=== PATIENT | male | born 1960 ===

== ENCOUNTER 2017-04-04 08:45 | Inpatient (IN) | payer BC ==
[2017-04-04] MEDS ORDERED: TEMAZEPAM 15 MG CAP PO PRN (09:53)
[2017-04-04] MEDS ORDERED: ALPRAZolam 0.25 MG TAB PO PRN (09:53)
[2017-04-04] MEDS ORDERED: NALOXONE 0.4 MG/ML 1 ML VIAL IV PRN (09:53)
[2017-04-04 11:39] LABS: Glucose,Whole Blood 129 mg/dL (75-99)
--- NOTE | 2017-04-04 11:46 | XR ---
EXAMINATION TYPE: XR chest 2V DATE OF EXAM: 04/04/2017 COMPARISON: None HISTORY: 57 year-old male shortness of breath, evaluate for CHF TECHNIQUE: Frontal and lateral views FINDINGS: The heart is borderline enlarged. The vasculature does not appear cephalized. Some strandy atelectasi s in the lower lungs. The right main pulmonary artery appears prominent on the lateral view. No conso lidation or pleural effusion. IMPRESSION: 1. Borderline cardiomegaly without hamida CHF. 2. The right main pulmonary artery appears large on the lateral view. Correlate for the possibility o f underlying pulmonary arterial hypertension.
[2017-04-04 12:03] LABS: Basophils % (A) 1 %; CH 31.4; CHCM 31.3; Eosinophils # (A) 0.1 k/uL (0-0.7); Eosinophils % (A) 3 %; HCT 37.3 % (39.0-53.0); HDW 2.53; HGB 12.2 gm/dL (13.0-17.5); Hypochromasia Slight; Luc # (Auto) 0.13; Luc % (Auto) 3; Lymphocytes % (A) 20 %; MCH 32.8 pg (25.0-35.0); MCHC 32.6 g/dL (31.0-37.0); MCV 100.7 fL (80.0-100.0); Macrocytosis Slight; Mean Platelet Volume 8.4; Monocytes # (A) 0.4 k/uL (0-1.0); Monocytes % (A) 8 %; Neutrophils # (A) 3.4 k/uL (1.3-7.7); Neutrophils % (A) 66 %; RBC 3.71 m/uL (4.30-5.90); RDW 14.5 % (11.5-15.5); WBC 5.1 k/uL (3.8-10.6); WBC (Perox) 5.73
[2017-04-04 12:18] LABS: ALT 45 U/L (21-72); AST 57 U/L (17-59); Alkaline Phosphatase 148 U/L (38-126); Anion Gap 10 mmol/L; Blood Urea Nitrogen 7 mg/dL (9-20); Calcium 9.1 mg/dL (8.4-10.2); Carbon Dioxide 26 mmol/L (22-30); Chloride 106 mmol/L (98-107); Glucose 130 mg/dL (74-99); Magnesium 1.6 mg/dL (1.6-2.3); Non-African American GFR(MDRD) >60 (>60 ml/min/1.73 sqM); Phosphorous 3.1 mg/dL (2.5-4.5); Potassium 4.1 mmol/L (3.5-5.1); Sodium 142 mmol/L (137-145); Total Bilirubin 1.9 mg/dL (0.2-1.3); Total Protein 7.7 g/dL (6.3-8.2)
[2017-04-04] MEDS: SODIUM CHLORIDE 0.9% 1,000 ML IV SCH (13:13)
[2017-04-04 15:15] LABS: INR 1.2 (<1.1); Prothrombin Time 11.7 sec (9.0-12.0)
[2017-04-04] MEDS: IOHEXOL 350 MG/ML 25 ML BOTTLE (ORAL USE) PO PRN ×2 (15:35→16:33)
[2017-04-04] MEDS: SPIRONOLACTONE 25 MG TAB PO SCH ×2 (15:37→20:59)
[2017-04-04 15:45] LABS: Hepatitis B Surface Ag Index 0.06
[2017-04-04 15:51] LABS: Hepatitis B Core IgM Index 0.03
[2017-04-04 15:56] LABS: Hemoglobin A1C 5.9 % (4.2-6.1)
[2017-04-04 16:02] LABS: Hepatitis C Virus IgG Ab Negative (Negative)
[2017-04-04 16:12] LABS: Amylase <30 U/L (30-110)
--- NOTE | 2017-04-04 16:54 | HP ---
DATE OF ADMISSION: CHIEF COMPLAINT: Abdominal distention as well as shortness of breath. HISTORY OF PRESENT ILLNESS: This 57-year-old gentleman with a past medical history of diabetes mellitus, history of deep venous thrombosis, history of right surgery being followed by Dr. Lainez in the outpatient setting complaining of increasing shortness of breath as well as abdominal distention for the last several weeks. The patient had multiple outpatient evaluations and the patient became persistently symptomatic with increase abdominal girth and as well as shortness of breath and exertion. Patient also complains of minimal leg edema. Dr. Lainez directly admitted the patient to hospital for further evaluation and treatment. There is no history of fever, rigors or chills. No history of headache, loss of consciousness or seizures at this time. No history of chest pain, palpitation either. The patient also had weight gain about 40 to 50 pounds in the past recent few weeks also. The patient also was noted to have generalized anasarca. PAST MEDICAL HISTORY: Diabetes mellitus type 2, history of DVT, history of surgery for club foot surgery. Medications prior to admission include: 1. Glucophage 500 mg p.o. b.i.d. 2. Aldactone 50 mg. ALLERGIES: SULFA. FAMILY HISTORY: No history of heart disease or strokes in the family. SOCIAL HISTORY: The patient works as [employer]. Otherwise occasional alcohol intake. No history of smoking. REVIEW OF SYSTEMS: ENT: No diminished hearing. No diminished vision. CARDIOVASCULAR: No angina, palpitations. RESPIRATORY: No cough, hemoptysis. GI: As mentioned earlier. : No dysuria. NERVOUS SYSTEM: No numbness or weakness. ALLERGY/IMMUNOLOGY: No asthma. MUSCULOSKELETAL: As mentioned earlier. HEMATOLOGY: No history of anemia. ENDOCRINE: As mentioned earlier. CONSTITUTIONAL: As mentioned earlier. DERMATOLOGY: Negative. RHEUMATOLOGY: Negative. PSYCHIATRY: Negative. PHYSICAL EXAMINATION: Alert and oriented x3. Pulse is 80, blood pressure 130/69, respirations 16, temperature 97.2, pulse ox is 90% on room air. HEENT: Conjunctivae normal. Oral mucosa moist. NECK: No jugular venous distention. No carotid bruit. No lymph node enlargement. CARDIOVASCULAR: S1 and S2. No S3, no S4. RESPIRATORY: Breath sounds diminished at the bases. A few scattered rhonchi and crackles. ABDOMEN: Soft, obese, abdominal wall striae present. Otherwise, diffuse dullness also present. No guarding. No rigidity. No mass palpable. LEGS: Minimal edema bilaterally. NERVOUS SYSTEM: Higher function as mentioned. Moves all four limbs. No focal motor deficits. LYMPHATIC: No lymphadenopathy in the neck, axillae or groin. SKIN: Multiple telangiectasia present on the face and upper chest. JOINTS: No active deforming arthropathy. LABS: At this time shows, WBC 5, hemoglobin 12, MCV 100.7, platelets 136, glucose 130, total bilirubin is 1.9, alkaline phosphatase 148. ASSESSMENT: 1. Abdominal distention and anasarca for evaluation, rule out chronic liver disease. 2. Rule out cirrhosis of the liver. 3. Rule out ascites. 4. Anemia. 5. Macrocytosis. 6. Increased random blood sugar and diabetes mellitus type 2. 7. Increased be bilirubin. 8. Increased alkaline phosphatase. 9. Super morbid obesity with BMI of 56.7. 10. Mild thrombocytopenia. 11. History of degenerative joint disease. 12. History of deep venous thrombosis. 13. History of prediabetes. 14. FULL CODE. RECOMMENDATIONS AND DISCUSSION: In this 57-year-old gentleman who presented with multiple complex medical issues, we will monitor the patient closely. Continue the current medications, continue the symptomatic treatment. I recommend re-evaluate the previous testing. Recommend acute hepatitis panel and as well as abdominal ultrasound and possibly ascitic tap if there is any fluid in the abdomen for diagnostic and therapeutic purposes. Otherwise, continue to monitor and guarded prognosis because of multiple complex medical issues. Further recommendations to follow. Will also check UA with micro. Other than that, prognosis guarded. Home medications to be continued. Discussed with the patient who understands and agrees. Copy of dictation forwarded to Dr. Lainez who is the primary physician. DUSTY
[2017-04-04 17:32] LABS: Glucose,Whole Blood 152 mg/dL (75-99)
[2017-04-04] MEDS: INSULIN LISPRO (humaLOG) 300 UNIT/3 ML VIAL SQ SCH ×2 (17:43→20:56)
--- NOTE | 2017-04-04 19:20 | CT ---
EXAMINATION TYPE: CT abdomen pelvis wo con DATE OF EXAM: 04/04/2017 COMPARISON: NONE HISTORY: Ascites. CT DLP: 3360.40 mGycm Automated exposure control for dose reduction was used. TECHNIQUE: Helical acquisition of images was performed from the lung bases through the pelvis. FINDINGS: Lung bases are clear of consolidation. There is no pleural effusion. There is a large amount of ascit es fluid throughout the abdomen. Exam is limited by the patient size. The anterior abdomen is not ent irely included as a result. Liver is relatively small and consistent with cirrhosis. Spleen is enlarg ed and measures 17 cm.: There is a loop at the gastroesophageal junction consistent with bariatric petty rgery. There is no sign of a pancreatic mass. Bile ducts are not dilated. There is no evidence of a b owel obstruction. There is no adrenal mass. Kidneys have normal size and contour. There is no hydronephrosis. There is an inferior vena cava filter noted. There is a 2 mm calcification in the lower pole left kidney. I se e no bony destructive process. There are spondylotic changes in the lumbar spine. Bladder distends sm oothly. There is no sign of a pelvic mass. IMPRESSION: CHANGES OF HEPATIC CIRRHOSIS. SPLENOMEGALY. BARIATRIC SURGERY NOTED. MASSIVE ASCITES. SUBCUTANEOUS EDEMA OVER THE ANTERIOR LOWER ABDOMINAL WALL. NONOBSTRUCTING TINY LEFT RENAL CALCULUS.
[2017-04-04 20:41] LABS: Glucose,Whole Blood 149 mg/dL (75-99)
[2017-04-04] MEDS: metFORMIN 500 MG TAB PO SCH (20:56)
[2017-04-04] MEDS: FUROSEMIDE 10 MG/ML 4 ML VIAL IV SCH (20:59)
[2017-04-04 22:17] LABS: Appearance,Urine Cloudy (Clear); Bacteria,Urine Many /hpf; Bilirubin,Urine Negative (Negative); Glucose,Urine (UA) Negative (Negative); Ketones,Urine Negative (Negative); Leukocyte Esterase,Urine Large (Negative); Mucus,Urine Rare /hpf; Nitrite,Urine Positive (Negative); PH, Urine 5.5 (5.0-8.0); Particle Count 4189; Protein,Urine Negative (Negative); RBC,Urine 5 /hpf (0-5); Specific Gravity,Urine 1.008 (1.001-1.035); Squamous Epithelial Cell,Urine <1 /hpf (0-4); UA Billing (MACRO vs. MICRO) MICRO; Urobilinogen,Urine <2.0 mg/dL (<2.0); WBC,Urine 134 /hpf (0-5)
[2017-04-05 07:20] LABS: Glucose,Whole Blood 115 mg/dL (75-99)
[2017-04-05] MEDS: INSULIN LISPRO (humaLOG) 300 UNIT/3 ML VIAL SQ SCH ×4 (07:24→22:50)
[2017-04-05] MEDS: PANTOPRAZOLE 40 MG TABLET PO SCH (08:10)
[2017-04-05] MEDS: SPIRONOLACTONE 25 MG TAB PO SCH ×2 (08:11→22:46)
[2017-04-05] MEDS: SODIUM CHLORIDE 0.9% 1,000 ML IV SCH (08:11)
[2017-04-05] MEDS: metFORMIN 500 MG TAB PO SCH ×2 (08:11→22:46)
[2017-04-05] MEDS: FUROSEMIDE 10 MG/ML 4 ML VIAL IV SCH ×2 (08:11→22:50)
[2017-04-05 08:12] LABS: Basophils % (A) 1 %; CH 31.2; CHCM 31.8; Eosinophils # (A) 0.1 k/uL (0-0.7); Eosinophils % (A) 3 %; HCT 35.9 % (39.0-53.0); HDW 2.54; HGB 11.9 gm/dL (13.0-17.5); Luc # (Auto) 0.11; Luc % (Auto) 2; Lymphocytes % (A) 22 %; MCH 32.8 pg (25.0-35.0); MCHC 33.2 g/dL (31.0-37.0); MCV 98.8 fL (80.0-100.0); Mean Platelet Volume 8.5; Monocytes # (A) 0.4 k/uL (0-1.0); Monocytes % (A) 9 %; Neutrophils # (A) 2.9 k/uL (1.3-7.7); Neutrophils % (A) 63 %; RBC 3.63 m/uL (4.30-5.90); RDW 14.4 % (11.5-15.5); WBC 4.6 k/uL (3.8-10.6); WBC (Perox) 5.23
[2017-04-05 08:32] LABS: ALT 38 U/L (21-72); AST 50 U/L (17-59); Alkaline Phosphatase 135 U/L (38-126); Anion Gap 9 mmol/L; Blood Urea Nitrogen 9 mg/dL (9-20); Calcium 8.9 mg/dL (8.4-10.2); Carbon Dioxide 30 mmol/L (22-30); Chloride 102 mmol/L (98-107); Glucose 127 mg/dL (74-99); Non-African American GFR(MDRD) >60 (>60 ml/min/1.73 sqM); Potassium 4.2 mmol/L (3.5-5.1); Sodium 141 mmol/L (137-145); Total Bilirubin 1.9 mg/dL (0.2-1.3); Total Protein 7.6 g/dL (6.3-8.2)
--- NOTE | 2017-04-05 10:20 | P.CONS ---
History of Present Illness - Reason for Consult Consult date: 04/05/17 ascites Requesting physician: Julius Tinsley - History of Present Illness 57-year-old gentleman patient of Dr. Lainez with a past medical history of morbid obesity BMI 61, LAP-BAND about 5 years ago, recent diagnosis of diabetes , DVT, and frequent alcohol consumption 3-4 times weekly for more than 20 years. Consultation requested for ascites. Patient has noticed increased abdominal girth lower extremity edema shortness of breath over the last few months but exacerbated over the last week. CT scan abdomen and pelvis reported a small cirrhotic-appearing liver with moderate ascites. IV diuretics started with good response patient's reports voiding large amounts of urine and feels better today. Denies hematemesis hematochezia melena. No fever or chills. No changes in the color of his urine or bowel movements. No history of hepatitis. Hepatitis panel negative. Denies alcohol abuse. No history of IVDA abuse. White count 5.1. Hemoglobin 12.2. MCV 100.7. Platelet 132. INR 1.2. Total bilirubin 1.9. AST 57. ALT 45. Alkaline phosphates 148. Lipase 46. BUN 7. Creatinine 0.8. No history of known liver disorders or autoimmune diseases. Review of Systems Constitutional: Denies fever, chills, sweats, weight gain, or loss. HEENT: Negative for migraines, blurred vision or loss, earaches, drainage, tinnitus, oral mucosal lesions, dysphagia, or odynophagia. Cardiac: Negative for chest pain, arrhythmias, or palpitation. Respiratory: Negative for shortness of breath, hemoptysis, cough, or sputum production. Gastrointestinal: See HPI for pertinent findings. Genitourinary: Negative for hematuria, urgency, frequency, polyuria, dysuria, or penile discharge. Musculoskeletal: Negative for muscle aches, swelling, arthritis, and arthralgias. Neurologic: Negative for stroke or TIA. Endocrine: Diabetes. Negative for thyroid problems. Hematologic: DVT. Skin: Negative for rash or itching. Psychiatric: Negative history for depression and anxietyle All systems: negative (See HPI) Past Medical History Past Medical History: Diabetes Mellitus, Deep Vein Thrombosis (DVT) Additional Past Medical History / Comment(s): Pt states he has had increased abdominal size for 1 week and is SOB with exertion, "pre-diabetic", DVT L leg History of Any Multi-Drug Resistant Organisms: None Reported Past Surgical History: Orthopedic Surgery Additional Past Surgical History / Comment(s): R club foot surgery as child, colonoscopy-normal. Past Anesthesia/Blood Transfusion Reactions: No Reported Reaction Smoking Status: Never smoker - Past Family History Mother Family Medical History: No Reported History Additional Family Medical History / Comment(s): Mother is 82yrs old. Father History Unknown: Yes Additional Family Medical History / Comment(s): Pt does not know father's medical history. Father in his 60's. Medications and Allergies Home Medications Medication Instructions Recorded Confirmed Type Spironolactone [Aldactone] 50 mg PO BID 04/04/17 04/04/17 History metFORMIN HCL [Glucophage] 500 mg PO BID 04/04/17 04/04/17 History Allergies Allergy/AdvReac Type Severity Reaction Status Date / Time Sulfa (Sulfonamide Allergy Unknown Verified 04/04/17 11:18 Antibiotics) Physical Exam Vitals: Vital Signs Temp Pulse Resp BP Pulse Ox 04/05/17 07:00 97.4 F L 81 20 148/99 92 L 04/04/17 22:59 98.3 F 83 18 128/57 94 L 04/04/17 21:03 135/87 04/04/17 16:00 18 04/04/17 15:00 97.1 F L 77 18 157/90 97 04/04/17 10:56 97.2 F L 80 18 135/74 96 Intake and Output 04/04/17 04/05/17 04/05/17 22:59 06:59 14:59 Output Total 1450 600 Balance -1450 -600 Output: Urine 1450 600 Other: Weight 184.5 kg 197.5 kg General appearance: The patient is alert, oriented, in no acute distress. Diffuse mild anasarca tube upper and lower extremities. HET: Head is normocephalic and atraumatic. Pupils are equal and reactive. Oropharynx is clear without lesions. Neck: Supple without lymphadenopathy. Trachea midline. Heart: S1 S2. Regular rate and rhythm. Lungs: No crackles or wheezes are heard. Abdomen: Soft, distended difficult to assess ascites secondary to large abdominal girth with bowel sounds. No peritoneal signs. No palpable organomegaly or masses. Extremities: +3 bilateral lower extremity edema. Neurological: No focal deficits. Strength and sensation are grossly intact. Results CBC & Chem 7: 04/05/17 07:31 04/05/17 07:31 Labs: Abnormal Lab Results - Last 24 Hours (Table) 04/04/17 04/04/17 04/04/17 Range/Units 11:30 11:36 11:38 RBC 3.71 L (4.30-5.90) m/uL Hgb 12.2 L (13.0-17.5) gm/dL Hct 37.3 L (39.0-53.0) % MCV 100.7 H (80.0-100.0) fL Plt Count 136 L (150-450) k/uL BUN 7 L (9-20) mg/dL Glucose 130 H (74-99) mg/dL POC Glucose (mg/dL) 129 H (75-99) mg/dL Total Bilirubin 1.9 H (0.2-1.3) mg/dL Alkaline Phosphatase 148 H (38-126) U/L Albumin (3.5-5.0) g/dL Amylase (30-110) U/L Ur Leukocyte Esterase (Negative) Urine WBC (0-5) /hpf Urine Bacteria (None) /hpf Hyaline Casts (0-2) /lpf Urine Mucus (None) /hpf 04/04/17 04/04/17 04/04/17 Range/Units 11:38 17:30 20:40 RBC (4.30-5.90) m/uL Hgb (13.0-17.5) gm/dL Hct (39.0-53.0) % MCV (80.0-100.0) fL Plt Count (150-450) k/uL BUN (9-20) mg/dL Glucose (74-99) mg/dL POC Glucose (mg/dL) 152 H 149 H (75-99) mg/dL Total Bilirubin (0.2-1.3) mg/dL Alkaline Phosphatase (38-126) U/L Albumin (3.5-5.0) g/dL Amylase <30 L (30-110) U/L Ur Leukocyte Esterase (Negative) Urine WBC (0-5) /hpf Urine Bacteria (None) /hpf Hyaline Casts (0-2) /lpf Urine Mucus (None) /hpf 04/04/17 04/05/17 04/05/17 Range/Units 22:00 07:14 07:31 RBC 3.63 L (4.30-5.90) m/uL Hgb 11.9 L (13.0-17.5) gm/dL Hct 35.9 L (39.0-53.0) % MCV (80.0-100.0) fL Plt Count 132 L (150-450) k/uL BUN (9-20) mg/dL Glucose (74-99) mg/dL POC Glucose (mg/dL) 115 H (75-99) mg/dL Total Bilirubin (0.2-1.3) mg/dL Alkaline Phosphatase (38-126) U/L Albumin (3.5-5.0) g/dL Amylase (30-110) U/L Ur Leukocyte Esterase Large H (Negative) Urine WBC 134 H (0-5) /hpf Urine Bacteria Many H (None) /hpf Hyaline Casts 6 H (0-2) /lpf Urine Mucus Rare H (None) /hpf 04/05/17 Range/Units 07:31 RBC (4.30-5.90) m/uL Hgb (13.0-17.5) gm/dL Hct (39.0-53.0) % MCV (80.0-100.0) fL Plt Count (150-450) k/uL BUN (9-20) mg/dL Glucose 127 H (74-99) mg/dL POC Glucose (mg/dL) (75-99) mg/dL Total Bilirubin 1.9 H (0.2-1.3) mg/dL Alkaline Phosphatase 135 H (38-126) U/L Albumin 3.4 L (3.5-5.0) g/dL Amylase (30-110) U/L Ur Leukocyte Esterase (Negative) Urine WBC (0-5) /hpf Urine Bacteria (None) /hpf Hyaline Casts (0-2) /lpf Urine Mucus (None) /hpf CT scan - abdomen: report reviewed (Dr. Hernandez) Assessment and Plan (1) Cirrhosis Narrative/Plan: 57-year-old gentleman with a history of lifelong morbid obesity and frequent consumption of alcohol for more than 20 years presents with increased abdominal girth generalized edema shortness of breath with CT imaging reporting cirrhotic- appearing liver and moderate amount of ascites suspected portal hypertension. Etiology of suspected cirrhosis new onset of ascites possibly alcohol-related combined with morbid obesity however nonalcoholic chronic liver disease etiology needs to be excluded. Status: Acute (2) Morbid obesity with BMI of 60.0-69.9, adult Status: Acute (3) Ascites Status: Acute Plan: 1. Therapeutic diagnostic paracentesis with interventional radiology. Will send ascitic fluid for culture, cytology, and analysis for portal hypertension. 2. Hepatitis panel reviewed and negative. AFP. 3. Full serologic workup for chronic liver disease will be requested. Discharge per medicine after paracentesis. Follow up in GI office after discharge for reevaluation. Thank you for this kind referral and the opportunity to participate in the care of your patient. This consultation was discussed with Dr. Hernandez. The impression and plan of care have been directed as dictated.
[2017-04-05 12:03] LABS: Glucose,Whole Blood 145 mg/dL (75-99)
--- NOTE | 2017-04-05 14:51 | P.PN ---
Subjective Date of service 04/05/2017. Progress note being dictated for Dr. Tinsley. Interval history: This a 57-year-old gentleman admitted with anasarca, abdominal distention, ascites and multiple other medical issues. Maintained on empiric Rocephin, Lasix, Aldactone. Feels better today. Abdominal /pelvis CT reporting changes of hepatic cirrhosis, relatively small liver consistent with cirrhosis, splenomegaly, massive ascites, subcutaneous edema over her anterior lower abdominal wall. Hepatitis panel negative. T bili 1.9, alk phos improving at 135. Evaluated by GI and scheduled for paracentesis. Review of systems: HEENT: Denies fevers,chills.Denies headache or focal deficits. Denies any dizziness or lightheadedness. Respiratory: Denies any increased shortness of breath or cough. Denies hemoptysis. Cardiac: Denies any chest pain, palpitations. GI: Denies any nausea, vomiting, or diarrhea. Increasing abdominal girth worsened over the last week, Denies any abdominal tenderness. : Denies any dysuria, urgency, frequency. Psychiatry: Denies any anxiety or depression. Active Medications Alprazolam (Xanax) 0.25 mg PO Q6HR PRN PRN Reason: Anxiety Furosemide (Lasix) 40 mg IV Q12HR [facility] Last Admin: 04/05/17 08:11 Dose: 40 mg Sodium Chloride (Saline 0.9%) 1,000 mls @ 20 mls/hr IV .Q24H [facility] Last Admin: 04/05/17 08:11 Dose: Not Given Ceftriaxone Sodium 1,000 mg/ (Sodium Chloride) 50 mls @ 100 mls/hr IVPB Q24HR [facility] Last Admin: 04/05/17 13:39 Dose: 100 mls/hr Insulin Human Lispro (Humalog) 0 unit SQ ACHS DERICK PRN Reason: Protocol Last Admin: 04/05/17 13:39 Dose: Not Given Iohexol (Omnipaque 350 Mg/Ml (For Oral Use)) 25 ml PO Q60M PRN PRN Reason: CT Scan Stop: 04/05/17 15:16 Last Admin: 04/04/17 16:33 Dose: 25 ml Metformin HCl (Glucophage) 500 mg PO BID [facility] Last Admin: 04/05/17 08:11 Dose: 500 mg Naloxone HCl (Narcan) 0.2 mg IV Q2M PRN PRN Reason: Opioid Reversal Pantoprazole Sodium (Protonix) 40 mg PO AC-BRKFST [facility] Last Admin: 04/05/17 08:10 Dose: Not Given Spironolactone (Aldactone) 50 mg PO BID [facility] Last Admin: 04/05/17 08:11 Dose: 50 mg Temazepam (Restoril) 15 mg PO HS PRN PRN Reason: Insomnia Objective - Vital Signs Vital signs: Vital Signs Temp 97.4 F L 04/05/17 07:00 Pulse 81 04/05/17 08:00 Resp 20 04/05/17 08:00 BP 148/99 04/05/17 07:00 Pulse Ox 92 L 04/05/17 07:00 Intake & Output 04/04/17 04/05/17 04/05/17 18:59 06:59 18:59 Intake Total 75 Output Total 1450 600 Balance -1450 -525 Weight 184.5 kg 197.5 kg Intake: Oral 75 Output: Urine 1450 600 Other: # Voids 2 - Exam PHYSICAL EXAM: VITAL SIGNS: As above GENERAL: [Sitting up in bed, no acute distress] HEENT: [Pupils equal conjunctiva normal. Oral mucosa moist] NECK: [Supple, no JVD] RESPIRATORY EFFORT:[ Normal] LUNGS: [Diminished, Scattered rhonchi, no wheezes or crackles CARDIOVASCULAR[ regular S1 and S2, positive edema] GI: [Abdomen obese, soft, distended, nontender, abdominal wall striae present, positive ascites, diffuse dullness ,positive bowel sounds. No guarding, no rigidity] PSYCH: [Alert and oriented -3, mood and affect normal.] SKIN: [Multiple telangiectasia of upper chest and face] NEURO: No focal deficits, moves all 4 extremities, strength and sensation grossly intact - Labs CBC & Chem 7: 04/05/17 07:31 04/05/17 07:31 Labs: Abnormal Lab Results - Last 24 Hours (Table) 04/04/17 04/04/17 04/04/17 Range/Units 11:38 17:30 20:40 RBC (4.30-5.90) m/uL Hgb (13.0-17.5) gm/dL Hct (39.0-53.0) % Plt Count (150-450) k/uL Glucose (74-99) mg/dL POC Glucose (mg/dL) 152 H 149 H (75-99) mg/dL Total Bilirubin (0.2-1.3) mg/dL Alkaline Phosphatase (38-126) U/L Albumin (3.5-5.0) g/dL Amylase <30 L (30-110) U/L Ur Leukocyte Esterase (Negative) Urine WBC (0-5) /hpf Urine Bacteria (None) /hpf Hyaline Casts (0-2) /lpf Urine Mucus (None) /hpf 04/04/17 04/05/17 04/05/17 Range/Units 22:00 07:14 07:31 RBC 3.63 L (4.30-5.90) m/uL Hgb 11.9 L (13.0-17.5) gm/dL Hct 35.9 L (39.0-53.0) % Plt Count 132 L (150-450) k/uL Glucose (74-99) mg/dL POC Glucose (mg/dL) 115 H (75-99) mg/dL Total Bilirubin (0.2-1.3) mg/dL Alkaline Phosphatase (38-126) U/L Albumin (3.5-5.0) g/dL Amylase (30-110) U/L Ur Leukocyte Esterase Large H (Negative) Urine WBC 134 H (0-5) /hpf Urine Bacteria Many H (None) /hpf Hyaline Casts 6 H (0-2) /lpf Urine Mucus Rare H (None) /hpf 04/05/17 04/05/17 Range/Units 07:31 11:58 RBC (4.30-5.90) m/uL Hgb (13.0-17.5) gm/dL Hct (39.0-53.0) % Plt Count (150-450) k/uL Glucose 127 H (74-99) mg/dL POC Glucose (mg/dL) 145 H (75-99) mg/dL Total Bilirubin 1.9 H (0.2-1.3) mg/dL Alkaline Phosphatase 135 H (38-126) U/L Albumin 3.4 L (3.5-5.0) g/dL Amylase (30-110) U/L Ur Leukocyte Esterase (Negative) Urine WBC (0-5) /hpf Urine Bacteria (None) /hpf Hyaline Casts (0-2) /lpf Urine Mucus (None) /hpf Assessment and Plan Plan: 1. Abdominal distention, anasarca for evaluation rule out chronic liver disease. 2. Hepatic cirrhosis as per CT, 3. Acute ascites, massive per CT, rule out portal hypertension, paracentesis pending 4. [ Anemia]. 5. [ Macrocytosis]. 6. [ Diabetes mellitus type 2, hemoglobin A1c 5.9]. 7. [ Increased bilirubin, increased alk phos]. 8. Morbid obesity, BMI 56.7 9. Mild thrombocytopenia 10. Degenerative joint disease 11. History of DVT Plan: Continue on current medication regime ,monitoring and symptomatic treatment. Diagnostic and therapeutic paracentesis scheduled for today. Follow closely with GI. Close monitoring of Accu-Cheks in a patient recently diagnosed with diabetes. clinical informatics educator consult initiated. Further recommendations to follow. The impression and plan of care has been dictated as directed. : I performed a H&P examination of this patient and discussed the same with the dictator. I agree with the dictator's note. Any additional findings/opinions/ etc. will be noted.
[2017-04-05 15:09] LABS: % Iron Saturation 30.4 % (20-50)
[2017-04-05 17:12] LABS: Glucose,Whole Blood 140 mg/dL (75-99)
[2017-04-05 20:43] LABS: Glucose,Whole Blood 166 mg/dL (75-99)
[2017-04-06 07:12] LABS: ANA w/Reflex to Titer POSITIVE (NEGATIVE)
[2017-04-06] MEDS: INSULIN LISPRO (humaLOG) 300 UNIT/3 ML VIAL SQ SCH ×2 (07:14→12:14)
[2017-04-06 07:42] LABS: Glucose,Whole Blood 129 mg/dL (75-99)
[2017-04-06 08:03] LABS: ALT 38 U/L (21-72); AST 46 U/L (17-59); Alkaline Phosphatase 114 U/L (38-126); Anion Gap 9 mmol/L; Basophils # (A) 0.1 k/uL (0-0.2); Basophils % (A) 1 %; Blood Urea Nitrogen 11 mg/dL (9-20); CH 31.4; CHCM 32.2; Calcium 8.8 mg/dL (8.4-10.2); Carbon Dioxide 30 mmol/L (22-30); Chloride 102 mmol/L (98-107); Eosinophils # (A) 0.1 k/uL (0-0.7); Eosinophils % (A) 3 %; Glucose 128 mg/dL (74-99); HDW 2.46; HGB 11.4 gm/dL (13.0-17.5); Luc # (Auto) 0.08; Luc % (Auto) 2; Lymphocytes # (A) 1.1 k/uL (1.0-4.8); Lymphocytes % (A) 26 %; MCH 32.2 pg (25.0-35.0); MCHC 32.7 g/dL (31.0-37.0); MCV 98.3 fL (80.0-100.0); Mean Platelet Volume 8.7; Monocytes # (A) 0.3 k/uL (0-1.0); Monocytes % (A) 7 %; Neutrophils # (A) 2.6 k/uL (1.3-7.7); Neutrophils % (A) 61 %; Non-African American GFR(MDRD) >60 (>60 ml/min/1.73 sqM); RBC 3.56 m/uL (4.30-5.90); RDW 14.5 % (11.5-15.5); Sodium 141 mmol/L (137-145); Total Bilirubin 1.5 mg/dL (0.2-1.3); Total Protein 7.2 g/dL (6.3-8.2); WBC 4.3 k/uL (3.8-10.6); WBC (Perox) 4.29
[2017-04-06] MEDS: PANTOPRAZOLE 40 MG TABLET PO SCH (08:29)
[2017-04-06] MEDS: FUROSEMIDE 10 MG/ML 4 ML VIAL IV SCH (08:29)
[2017-04-06] MEDS: SODIUM CHLORIDE 0.9% 1,000 ML IV SCH (08:29)
--- NOTE | 2017-04-06 08:30 | P.PN ---
Subjective Principal diagnosis: Cirrhosis new-onset ascites 57-year-old gentleman with a history of morbid obesity and long-standing alcohol consumption presents with new onset of ascites shortness of breath. Scheduled for therapeutic diagnostic paracentesis today. SHAMEKA screen positive. Hepatitis panel negative. AFP 3.6. LFTs; total bilirubin 1.5. AST 46. ALT 38. Alkaline phosphatase 114. Iron indices within normal limits. Feels better. Objective - Vital Signs Vital signs: Vital Signs Temp 97.6 F 04/06/17 07:36 Pulse 91 04/06/17 07:36 Resp 18 04/06/17 07:36 BP 130/72 04/06/17 07:36 Pulse Ox 91 L 04/06/17 07:36 Intake & Output 04/05/17 04/06/17 04/06/17 18:59 06:59 18:59 Intake Total 565 Output Total 1250 1650 Balance -685 -1650 Weight 197.5 kg 195 kg Intake: Intake, IV Titration 60 Amount Sodium Chloride 0.9% 1, 10 000 ml @ 20 mls/hr IV . Q24H DERICK Rx#:[id number] cefTRIAXone 1,000 mg In 50 Sodium Chloride 0.9% 50 ml @ 100 mls/hr IVPB Q24HR DERICK Rx#:[id number] Oral 505 Output: Urine 1250 1650 Other: # Voids 2 2 # Bowel Movements 0 - Exam General appearance: The patient is alert, oriented, in no acute distress. Diffuse mild anasarca tube upper and lower extremities. HET: Head is normocephalic and atraumatic. Pupils are equal and reactive. Oropharynx is clear without lesions. Neck: Supple without lymphadenopathy. Trachea midline. Heart: S1 S2. Regular rate and rhythm. Lungs: No crackles or wheezes are heard. Abdomen: Soft, distended difficult to assess ascites secondary to large abdominal girth with bowel sounds. No peritoneal signs. No palpable organomegaly or masses. Extremities: +3 bilateral lower extremity edema. Neurological: No focal deficits. Strength and sensation are grossly intact. - Labs CBC & Chem 7: 04/06/17 07:09 04/06/17 07:09 Labs: Abnormal Lab Results - Last 24 Hours (Table) 04/05/17 04/05/17 04/05/17 Range/Units 07:31 07:31 10:20 RBC 3.63 L (4.30-5.90) m/uL Hgb 11.9 L (13.0-17.5) gm/dL Hct 35.9 L (39.0-53.0) % Plt Count 132 L (150-450) k/uL Glucose 127 H (74-99) mg/dL POC Glucose (mg/dL) (75-99) mg/dL TIBC 237 L (261-462) ug/dL Total Bilirubin 1.9 H (0.2-1.3) mg/dL Alkaline Phosphatase 135 H (38-126) U/L Albumin 3.4 L (3.5-5.0) g/dL SHAMEKA Screen (NEGATIVE) 04/05/17 04/05/17 04/05/17 Range/Units 10:20 11:58 17:08 RBC (4.30-5.90) m/uL Hgb (13.0-17.5) gm/dL Hct (39.0-53.0) % Plt Count (150-450) k/uL Glucose (74-99) mg/dL POC Glucose (mg/dL) 145 H 140 H (75-99) mg/dL TIBC (261-462) ug/dL Total Bilirubin (0.2-1.3) mg/dL Alkaline Phosphatase (38-126) U/L Albumin (3.5-5.0) g/dL SHAMEKA Screen POSITIVE H (NEGATIVE) 04/05/17 04/06/17 04/06/17 Range/Units 20:42 07:09 07:09 RBC 3.56 L (4.30-5.90) m/uL Hgb 11.4 L (13.0-17.5) gm/dL Hct 35.0 L (39.0-53.0) % Plt Count 125 L (150-450) k/uL Glucose 128 H (74-99) mg/dL POC Glucose (mg/dL) 166 H (75-99) mg/dL TIBC (261-462) ug/dL Total Bilirubin 1.5 H (0.2-1.3) mg/dL Alkaline Phosphatase (38-126) U/L Albumin 3.2 L (3.5-5.0) g/dL SHAMEKA Screen (NEGATIVE) 04/06/17 Range/Units 07:40 RBC (4.30-5.90) m/uL Hgb (13.0-17.5) gm/dL Hct (39.0-53.0) % Plt Count (150-450) k/uL Glucose (74-99) mg/dL POC Glucose (mg/dL) 129 H (75-99) mg/dL TIBC (261-462) ug/dL Total Bilirubin (0.2-1.3) mg/dL Alkaline Phosphatase (38-126) U/L Albumin (3.5-5.0) g/dL SHAMEKA Screen (NEGATIVE) Microbiology - Last 24 Hours (Table) 04/05/17 16:00 Urine Culture - Preliminary Urine,Clean Catch Assessment and Plan (1) Cirrhosis Narrative/Plan: 57-year-old gentleman with a history of lifelong morbid obesity and frequent consumption of alcohol for more than 20 years presents with increased abdominal girth generalized edema shortness of breath with CT imaging reporting cirrhotic- appearing liver and moderate amount of ascites suspected portal hypertension. Etiology of suspected cirrhosis new onset of ascites possibly alcohol-related combined with morbid obesity however nonalcoholic chronic liver disease etiology needs to be excluded. Status: Acute (2) Morbid obesity with BMI of 60.0-69.9, adult Status: Acute (3) Ascites Status: Acute (4) Positive SHAMEKA (antinuclear antibody) Status: Acute Plan: 1. Paracentesis. Discharge per medicine. 2. Return to office in 7-10 days for reevaluation. Low-salt diet. 3. Continue diuretics. Assessment and plan a care discussed with Dr. Hernandez.
--- NOTE | 2017-04-06 10:06 | P.PN ---
Subjective Date of service 04/06/2017. Progress note being dictated for Dr. Tinsley. Interval history: This a 57-year-old gentleman admitted with anasarca, abdominal distention, ascites and multiple other medical issues. Awaiting therapeutic/diagnostic paracentesis this am. Continues on empiric Rocephin, Lasix, Aldactone. T Bili, lfts improving. SHAMEKA screen positive. Feels better, eager to go home. Review of systems: HEENT: Denies fevers,chills.Denies headache or focal deficits. Denies any dizziness or lightheadedness. Respiratory: Denies any increased shortness of breath or cough. Denies hemoptysis. Cardiac: Denies any chest pain, palpitations. GI: Denies any nausea, vomiting, or diarrhea. Increasing abdominal girth worsened over the last week, Denies any abdominal tenderness. : Denies any dysuria, urgency, frequency. Psychiatry: Denies any anxiety or depression. Active Medications Generic Name Dose Route Start Last Admin Trade Name Freq PRN Reason Stop Dose Admin Alprazolam 0.25 mg 04/04/17 09:53 Xanax PO Q6HR PRN Anxiety Furosemide 40 mg 04/04/17 21:00 04/06/17 08:29 Lasix IV 40 mg Q12HR DERICK Administration Sodium Chloride 1,000 mls @ 20 mls/hr 04/04/17 10:00 04/06/17 08:29 Saline 0.9% IV 20 mls/hr .Q24H DERICK Administration Ceftriaxone Sodium 1,000 mg/ 50 mls @ 100 mls/hr 04/05/17 12:00 04/06/17 08: 28 Sodium Chloride IVPB 100 mls/hr Q24HR DERICK Administration Insulin Human Lispro 0 unit 04/04/17 17:30 04/06/17 07:14 Humalog SQ Not Given ACHS DERICK Protocol Metformin HCl 500 mg 04/04/17 21:00 04/05/17 22:46 Glucophage PO 500 mg BID DERICK Administration Naloxone HCl 0.2 mg 04/04/17 09:53 Narcan IV Q2M PRN Opioid Reversal Pantoprazole Sodium 40 mg 04/05/17 07:30 04/06/17 08:29 Protonix PO Not Given AC-BRKFST DERICK Spironolactone 50 mg 04/04/17 13:45 04/05/17 22:46 Aldactone PO 50 mg BID DERICK Administration Temazepam 15 mg 04/04/17 09:53 Restoril PO HS PRN Insomnia Objective - Vital Signs Vital signs: Vital Signs Temp 97.6 F 04/06/17 07:36 Pulse 77 04/06/17 09:33 Resp 14 04/06/17 09:33 BP 132/61 04/06/17 09:33 Pulse Ox 97 04/06/17 09:33 Intake & Output 04/05/17 04/06/17 04/06/17 18:59 06:59 18:59 Intake Total 565 Output Total 1250 1650 Balance -685 -1650 Weight 197.5 kg 195 kg Intake: Intake, IV Titration 60 Amount Sodium Chloride 0.9% 1, 10 000 ml @ 20 mls/hr IV . Q24H DERICK Rx#:[id number] cefTRIAXone 1,000 mg In 50 Sodium Chloride 0.9% 50 ml @ 100 mls/hr IVPB Q24HR DERICK Rx#:[id number] Oral 505 Output: Urine 1250 1650 Other: # Voids 2 2 # Bowel Movements 0 - Exam PHYSICAL EXAM: VITAL SIGNS: As above GENERAL: [Sitting up in bed, no acute distress] HEENT: [Pupils equal conjunctiva normal. Oral mucosa moist] NECK: [Supple, no JVD] RESPIRATORY EFFORT:[ Normal] LUNGS: [Diminished, Scattered rhonchi, no wheezes or crackles CARDIOVASCULAR[ regular S1 and S2, positive edema] GI: [Abdomen obese, soft, distended, nontender, abdominal wall striae present, diffuse dullness ,positive bowel sounds. No guarding, no rigidity] PSYCH: [Alert and oriented -3, mood and affect normal.] SKIN: [Multiple telangiectasia of upper chest and face] NEURO: No focal deficits, moves all 4 extremities, strength and sensation grossly intact - Labs CBC & Chem 7: 04/06/17 07:09 04/06/17 07:09 Labs: Abnormal Lab Results - Last 24 Hours (Table) 04/05/17 04/05/17 04/05/17 Range/Units 10:20 10:20 11:58 RBC (4.30-5.90) m/uL Hgb (13.0-17.5) gm/dL Hct (39.0-53.0) % Plt Count (150-450) k/uL Glucose (74-99) mg/dL POC Glucose (mg/dL) 145 H (75-99) mg/dL TIBC 237 L (261-462) ug/dL Total Bilirubin (0.2-1.3) mg/dL Albumin (3.5-5.0) g/dL SHAMEKA Screen POSITIVE H (NEGATIVE) 04/05/17 04/05/17 04/06/17 Range/Units 17:08 20:42 07:09 RBC 3.56 L (4.30-5.90) m/uL Hgb 11.4 L (13.0-17.5) gm/dL Hct 35.0 L (39.0-53.0) % Plt Count 125 L (150-450) k/uL Glucose (74-99) mg/dL POC Glucose (mg/dL) 140 H 166 H (75-99) mg/dL TIBC (261-462) ug/dL Total Bilirubin (0.2-1.3) mg/dL Albumin (3.5-5.0) g/dL SHAMEKA Screen (NEGATIVE) 04/06/17 04/06/17 Range/Units 07:09 07:40 RBC (4.30-5.90) m/uL Hgb (13.0-17.5) gm/dL Hct (39.0-53.0) % Plt Count (150-450) k/uL Glucose 128 H (74-99) mg/dL POC Glucose (mg/dL) 129 H (75-99) mg/dL TIBC (261-462) ug/dL Total Bilirubin 1.5 H (0.2-1.3) mg/dL Albumin 3.2 L (3.5-5.0) g/dL SHAMEKA Screen (NEGATIVE) Microbiology - Last 24 Hours (Table) 04/05/17 16:00 Urine Culture - Preliminary Urine,Clean Catch Assessment and Plan Plan: 1. Abdominal distention, anasarca for evaluation rule out chronic liver disease. 2. Hepatic cirrhosis as per CT, 3. Acute ascites, massive per CT, rule out portal hypertension, paracentesis pending 4. [ Anemia]. 5. [ Macrocytosis]. 6. [ Diabetes mellitus type 2, hemoglobin A1c 5.9]. 7. [ Increased bilirubin, increased alk phos]. 8. Morbid obesity, BMI 56.7 9. Mild thrombocytopenia 10. Degenerative joint disease 11. History of DVT 12. Positive SHAMEKA Screen Plan: Continue on current medication regime ,diuretics, monitoring and symptomatic treatment. Diagnostic and therapeutic paracentesis scheduled for this am. Continue/re-enforce diabetic teaching in a patient recently diagnosed with diabetes. Traffic Attendant consulted. Further recommendations to follow. The impression and plan of care has been dictated as directed. : I performed a H&P examination of this patient and discussed the same with the dictator. I agree with the dictator's note. Any additional findings/opinions/ etc. will be noted.
[2017-04-06 11:14] VITALS: BMI 59.9
[2017-04-06] MEDS: metFORMIN 500 MG TAB PO SCH (11:53)
[2017-04-06] MEDS: SPIRONOLACTONE 25 MG TAB PO SCH (11:54)
[2017-04-06 12:12] LABS: Glucose,Whole Blood 130 mg/dL (75-99)
[2017-04-06 12:25] VITALS: BP 140/68; PULSE 72; RESP 16; TEMP 97.3
--- NOTE | 2017-04-06 14:38 | US ---
EXAMINATION TYPE: US paracentesis abd w/image DATE OF EXAM: 04/06/2017 COMPARISON: CT 04/04/2017 HISTORY: Ascites. PROCEDURE: Maximal barrier technique was utilized. The skin overlying a suitable pocket of fluid was localized with ultrasound and the overlying skin was prepped and draped. Ultrasound was utilized with sterile technique. Lidocaine was used for local anesthesia and a skin reese made with a scalpel. Catheter was advanced under direct ultrasound guidance into a suitable pocket of fluid and approximately 11.6 lite rs of yellow fluid were removed. Catheter was withdrawn and hemostasis achieved. There is no immedi ate complication; the patient is discharged in stable condition. IMPRESSION: STATUS POST ULTRASOUND GUIDED PARACENTESIS FOR PALLIATION OF ASCITES. THIS PROCEDURE WA S PERFORMED BY THE UNDERSIGNED.
[2017-04-06 15:27] LABS: RBC, Body Fluid 255 /uL
[2017-04-06 15:32] LABS: Body Fluid Comment Moderate Mesothelial
[2017-04-06 17:16] LABS: Glucose, BF Source Peritoneal Fluid; T. Protein, Body Fluid Source Peritoneal Fluid; Total Protein, Body Fluid 1085 mg/dL
--- NOTE | 2017-04-07 09:24 | PN ---
DATE OF SERVICE: 04/05/2017 This 57-year-old gentleman who was admitted with abdominal distention and possibly ascites and possibly cirrhosis of the liver. Seen and evaluated the patient with nurse practitioner. Please refer to nurse practitioner's notes and impression documented for further impression. Abdominal CAT scan noted. Exact etiology of cirrhosis unknown at this time. Could be cryptogenic cirrhosis. The patient ( ) of alcohol abuse and hepatitis panel is negative. Prognosis guarded. Further recommendation to follow. MTDD
--- NOTE | 2017-04-09 13:23 | DS ---
DATE OF SERVICE: 04/06/2017 FINAL DIAGNOSES: 1. Abdominal distention, ascites, anasarca possibly chronic liver disease and cirrhosis of liver of undetermined etiology. 2. Hepatic cirrhosis per CT scan. 3. Ascites status post paracentesis with portal hypertension. 4. Anemia, macrocytosis, secondary to cirrhosis of the liver. 5. Diabetes mellitus type 2. 6. Increased bilirubin. 7. Morbid obesity with body mass index 56.7. 8. Mild thrombocytopenia. 9. History of degenerative joint disease. 10. History of deep venous thrombosis. 11. Positive ( ) screen. 12. FULL CODE. DISCHARGE DISPOSITION: The patient will be discharged in stable condition with guarded prognosis. HISTORY OF PRESENT ILLNESS: This 57-year-old gentleman with past medical history being followed by Dr. Lainez in the outpatient setting admitted with abdominal distention as well as generalized anasarca. Patient was treated. The patient monitored closely. CT scan of the abdomen showed ascites as well as possibly splenomegaly suggestive of cirrhosis of the liver. Patient underwent ascitic aspiration of 11 liters of fluid. Results are pending at this time. Patient has been treated with diuretics. Gastroenterology saw the patient as well. On exam, vitals are stable. CARDIOVASCULAR: S1, S2. ABDOMEN: Soft, distended. NERVOUS SYSTEM: No focal deficits. The patient is keen on going home at this time. The patient will be discharged home in stable condition with the following advice and medications: 1. Diet is cardiac. 2. Activity limited until follow up. 3. Follow up with Dr. Lainez as recommended. 4. Follow up with GI as recommended. MEDICATIONS: 1. Lasix 40 mg p.o. b.i.d. 2. Glucophage 500 mg p.o. b.i.d. 3. Aldactone 50 mg p.o. b.i.d. Follow up with Gastroenterology as recommended. Follow up labs with Dr. Lainez. Once again, the patient will be discharged in stable condition with guarded prognosis. [facility]
== END 2017-04-06 13:38 | disposition home or self-care (01) | DRG 433 ==
LOC: 4MS4W 09:08 → EDBD 09:08
PROVIDERS: ADMIT Hospitalist; ATTEND Hospitalist
PROC: 0W9G3ZX Drainage of Peritoneal Cavity, Percutaneous Approach, Diagnostic (ICD-10-PCS; principal; 2017-04-06)
DX: K74.60 Unspecified cirrhosis of liver (principal); R18.8 Other ascites; D69.6 Thrombocytopenia, unspecified; Z68.43 Body mass index [BMI] 50.0-59.9, adult; E66.01 Morbid (severe) obesity due to excess calories; E11.9 Type 2 diabetes mellitus without complications; D75.89 Other specified diseases of blood and blood-forming organs; D64.9 Anemia, unspecified; Q66.89 Other specified congenital deformities of feet; Z86.718 Personal history of other venous thrombosis and embolism; M19.91 Primary osteoarthritis, unspecified site; Z79.84 Long term (current) use of oral hypoglycemic drugs; Z79.899 Other long term (current) drug therapy
CPT/HCPCS: 49083; 71020; 74176; 80053; 80074; 81001; 82103; 82105; 82150; 82390; 82728; 82945; 83036; 83516; 83540; 83550; 83690; 83735; 84100; 84157; 84165; 85025; 85610; 86038; 86039; 87070; 87075; 87086; 87205; 88108; 88305; 89050; 93005; 94760

== ENCOUNTER 2019-12-19 11:54 | Day surgery (SDC) | payer BC ==
[2019-12-19 12:19] VITALS: RESP 20; TEMP 98.7
[2019-12-19 12:48] LABS: Mean Platelet Volume 9.4; Platelet Count 115 k/uL (150-450)
[2019-12-19 13:06] LABS: INR 1.2 (<1.2); Prothrombin Time 11.9 sec (9.0-12.0)
[2019-12-19 13:14] LABS: Glucose,Whole Blood 135 mg/dL (75-99)
[2019-12-19] MEDS: ALBUMIN HUMAN 25% 50 ML in EMPTY BAG 1 BAG IVPB SCH ×4 (13:43→14:37)
[2019-12-19 15:41] VITALS: BP 108/70; PULSE 78
--- NOTE | 2019-12-19 19:47 | US ---
EXAMINATION TYPE: US paracentesis abd w/image DATE OF EXAM: 12/19/2019 COMPARISON: NONE HISTORY: Ascites. PROCEDURE: Maximal barrier technique was utilized. The skin overlying a suitable pocket of fluid was localized with ultrasound and the overlying skin was prepped and draped. Ultrasound was utilized with sterile technique. Lidocaine was used for local anesthesia and a skin reese made with a scalpel. Catheter was advanced under direct ultrasound guidance into a suitable pocket of fluid and approximately 12.3 lite rs of serous fluid were removed. Catheter was withdrawn and hemostasis achieved. There is no immedi ate complication; the patient is discharged in stable condition. IMPRESSION: STATUS POST ULTRASOUND GUIDED PARACENTESIS FOR PALLIATION OF ASCITES. THIS PROCEDURE WA S PERFORMED BY THE UNDERSIGNED.
== END 2019-12-19 13:40 | disposition home or self-care (01) ==
LOC: RADPROMAIN 11:54
PROVIDERS: ATTEND Internal Medicine Gastroenterology
DX: R18.8 Other ascites (principal); Z98.890 Other specified postprocedural states
CPT/HCPCS: 82565; 85049; 85610; 36415; 49083; P9047